=== PATIENT | male | born 1960 | race Caucasian/White ===

== ENCOUNTER 2017-12-08 06:02 | Day surgery (SDC) | payer BC ==
[~2017-12-08 06:02] MED LIST: Lactated Ringer's 500 ML IV ONE; Phenylephrine 2.5% Opht Soln OD ONE
[2017-12-08] MEDS ORDERED: Lactated Ringer's 500 ML IV ONE (07:22)
[2017-12-08] MEDS ORDERED: Tobramycin/Dexamethasone OPHT OINT ONE (08:55)
[2017-12-08] MEDS ORDERED: Tetracaine 0.5% Ophth (OR ONLY) ONE (08:55)
[2017-12-08] MEDS ORDERED: Hyaluronidase Human, Recombi 150 U/ML VIAL ONE (08:56)
[2017-12-08] MEDS ORDERED: Gentamicin 80 mg/2mL Inj. ONE (08:56)
[2017-12-08] MEDS ORDERED: MethylPREDNISolone 40 mg Vial ONE (08:56)
[2017-12-08] MEDS ORDERED: Lidocaine 2% MPF (5 ml) Inj ONE (09:04)
[2017-12-08] MEDS ORDERED: Lidocaine/Epinephrine 1% 1:100000 10 ML IJ ONE (09:05)
[2017-12-08] MEDS ORDERED: Propofol 10 mg/ml Inj (20 ML) ONE (10:10)
[2017-12-08 11:55] VITALS: BP 113/66; PULSE 69; RESP 20; TEMP 97.7; O2SAT 100
--- NOTE | 2017-12-08 21:25 | OP ---
PROCEDURE DATE: 12/08/2017 PREOPERATIVE DIAGNOSIS: Progressive pterygium, right eye. POSTOPERATIVE DIAGNOSIS: Progressive pterygium, right eye. PROCEDURE: Pterygium excision with autograft, right eye. ATTENDING SURGEON: Rashad Cuevas MD ANESTHESIA: Retrobulbar block. COMPLICATIONS: None. ESTIMATED BLOOD LOSS: 0.5 mL. DESCRIPTION OF PROCEDURE: The patient was brought to the operating room and properly identified. A retrobulbar block was given to the right eye with no complication. The patient was then prepped and draped in the usual sterile fashion, sitting superiorly. A lid speculum was placed in the eye. Lidocaine with epinephrine was injected into the pterygium. A 0.12 Ryland scissors was used to remove the pterygium. Once it was removed, a byron narayan was used for the corneal portion. Hemostasis was maintained with cautery. Mitomycin C 0.02% was placed on the bare sclera for one and half minutes and washed with BSS solution. Autograft was then carefully removed from the superior portion of the conjunctiva and glued into place over the bare sclera using Tisseel glue. Subconjunctival antibiotics and steroids were then given. The eye was covered with soft patch and shield. The patient was returned to the recovery room in stable condition. Rashad Cuevas MD
== END 2017-12-08 11:44 | disposition home or self-care (01) ==
LOC: C.SDS 06:02
PROVIDERS: ATTEND Ophthalmology
DX: H11.051 Peripheral pterygium, progressive, right eye (principal)
CPT/HCPCS: 65426; 88304; J1580; J2704; J2920; J3470; J7120; J9280